=== PATIENT | female | born 1935 | race Caucasian/White ===

== ENCOUNTER 2016-09-26 12:15 | Emergency (ER) | payer MEDICARE, BC ==
[2016-09-26 12:45] VITALS: BP 150/87
--- NOTE | 2016-09-26 13:10 | UC ---
Rectal Pain HPI - HPI Summary HPI Summary: Bright red blood per rectum x 2 today, second time noticed the water in the toilet turned red. Had hemorrhoids decades ago, not recently. Has been taking abx for sinusitis which has led to frequent loose stool. Denies pain or abdominal cramping. - History Of Current Complaint Chief Complaint: UCGI Stated Complaint: PERSONAL Time Seen by Provider: 09/26/16 12:47 Hx Obtained From: Patient Hx Last Menstrual Period: Years ago. ?: No Onset/Duration: Sudden Onset Severity Initially: Mild Severity Currently: None Aggravating Factor(s): Bowel Movement Alleviating Factor(s): Nothing Associated Signs And Symptoms: Positive: Rectal Bleeding, Bright Red Blood w/ Stool Related History: Hemorrhoids - distant - Allergies/Home Medications Allergies/Adverse Reactions: Allergies Allergy/AdvReac Type Severity Reaction Status Date / Time No Known Allergies Allergy Verified 09/26/16 12:45 PMH/Surg Hx/FS Hx/Imm Hx Endocrine History Of: Reports: Thyroid Disease - hypo Denies: Diabetes, Hyperthyroidism, Hypothyroidism, Dyslipidemia Cardiovascular History Of: Reports: Cardiac Disorders - arrhythmias Denies: Hypertension, Pacemaker/ICD, Myocardial Infarction, Congestive Heart Failure, Atrial Fibrillation, Deep Vein Thrombosis, Bleeding Disorders Respiratory History Of: Denies: COPD, Asthma, Bronchitis, Pneumonia, Pulmonary Embolism GI/ History Of: Denies: Gastroesophageal Reflux, Ulcer, Gastrointestinal Bleed, Gall Bladder Disease, Kidney Stones, Diverticulitis, Renal Disease, Urosepsis Neurological History Of: Denies: TIA, CVA, Dementia, Seizures, Migraine Psychological History Of: Denies: Anxiety, Depression, Bipolar Disorder, Schizophrenia, Post Traumatic Stress Disorder Cancer History Of: Denies: Lung Cancer, Colorectal Cancer, Breast Cancer, Prostate Cancer, Cervical Cancer Other History Of: Negative For: HIV, Hepatitis B, Hepatitis C - Surgical History Surgical History: Yes Surgery Procedure, Year, and Place: hysterectomy. appendix - Family History Known Family History: Positive: None, Cardiac Disease, Hypertension - Social History Alcohol Use: Daily Alcohol Amount: wine Substance Use Type: None Smoking Status (MU): Never Smoked Tobacco - Immunization History Most Recent Tetanus Shot: 2014 Review of Systems Constitutional: Negative Skin: Negative Eyes: Negative ENT: Negative Respiratory: Negative Cardiovascular: Negative Gastrointestinal: Other - blood Genitourinary: Negative Motor: Negative Neurovascular: Negative Musculoskeletal: Negative Neurological: Negative Psychological: Negative All Other Systems Reviewed And Are Negative: Yes Physical Exam Triage Information Reviewed: Yes Appearance: Well-Appearing, No Pain Distress, Well-Nourished Vital Signs: Initial Vital Signs Temp 97.5 F 09/26/16 12:35 Pulse 120 09/26/16 12:35 Resp 16 09/26/16 12:35 BP 150/87 09/26/16 12:35 Pulse Ox 100 09/26/16 12:35 Vital Signs Reviewed: Yes Eye Exam: Other - PERRL, age-related pupillary constriction Eyes: Positive: Conjunctiva Clear ENT Exam: Normal ENT: Positive: Normal ENT inspection, Hearing grossly normal, Pharynx normal, TMs normal Neck exam: Normal Neck: Positive: Supple, Nontender, No Lymphadenopathy Respiratory Exam: Normal Respiratory: Positive: Chest non-tender, Lungs clear, Normal breath sounds, No respiratory distress, No accessory muscle use Cardiovascular: Positive: No Murmur, Tachycardia Abdominal Exam: Normal Abdomen Description: Positive: Soft Musculoskeletal Exam: Normal Neurological Exam: Normal Neurological: Positive: Alert Psychological Exam: Normal Skin Exam: Normal - Additional Comments Manuelito dried blood noted externally on rectal exam. Dark red blood with ZORA, no masses or hemorrhoids noted. Approx nickel-sized bloodstain on underpants. Rectal Pain Course/Dx - Differential Dx/Diagnosis Provider Diagnoses: lower GI bleeding. elevated blood pressure due to discomfort and anxiety Discharge - Discharge Plan Condition: Stable Disposition: HOME Patient Education Materials: Rectal Bleeding (ED) Referrals: Eliza Feliciano MD [Primary Care Provider] - 2 Days Arash Reynoso MD [Medical Doctor] - Additional Instructions: As we discussed, I recommend you get seen in the Emergency Department to make sure you are not becoming anemic. Infection related to your antibiotic use is also a concern. If you do not go to the hospital, please return the stool sample and call your primary care office on wednesday to discuss follow-up testing.
== END 2016-09-26 13:54 | disposition home or self-care (01) ==
LOC: UCCORT 12:15
DX: K92.2 Gastrointestinal hemorrhage, unspecified (principal); R03.0 Elevated blood-pressure reading, without diagnosis of hypertension; E03.9 Hypothyroidism, unspecified; I49.9 Cardiac arrhythmia, unspecified
CPT/HCPCS: 99211; G0463

== ENCOUNTER 2017-07-12 08:31 | Day surgery (SDC) | payer MEDICARE, BC ==
[~2017-07-12 08:31] MED LIST: Acetaminophen TAB* 325 MG PO PRN; Buffered Lidocaine 0.9% SYRIN* 5 ML/SYR SYRINGE INTRADERM ONE
[2017-07-12] MEDS ORDERED: fentaNYL* 50 MCG/ML 2 ML VIAL (100 MCG VIAL) ONE (09:58)
[2017-07-12] MEDS ORDERED: Midazolam* 1 MG/ML 2 ML VIAL (2 MG) ONE (09:59)
[2017-07-12 11:16] VITALS: BP 132/70
[2017-07-12] MEDS ORDERED: Ketorolac 0.5% OPHTH (NF) 0.5 % 5 ML BTL ONE (11:50)
[2017-07-12] MEDS ORDERED: Neomycin/Polymy/Dex OPHTH.OIN* 3.5 GM ONE (11:50)
[2017-07-12] MEDS ORDERED: Cyclopentolate 1% OPTH.SOL* 2 ML BTL ONE (11:50)
[2017-07-12] MEDS ORDERED: acetaZOLAMIDE TAB* 250 MG ONE (11:50)
[2017-07-12] MEDS ORDERED: Tetracaine 0.5% OPTH.SOL 4 ML* 1 DROP BTL ONE (11:50)
[2017-07-12] MEDS ORDERED: Lidocaine 1% MPF* 2 ML VIAL ONE (11:50)
[2017-07-12] MEDS ORDERED: Tropicamide 1% OPTH.SOL* BTL ONE (11:50)
[2017-07-12] MEDS ORDERED: Povidone Iodine 5% OPTH* 30 ML BTL ONE (11:50)
[2017-07-12] MEDS ORDERED: Phenylephrine 2.5% OPTH.SOL* 2 ML BTL ONE (11:50)
--- NOTE | 2017-07-13 05:47 | OP ---
DATE OF OPERATION: 07/12/17 - [facility] DATE OF : 39 SURGEON: Olivier Bryson MD ANESTHESIA: Monitored anesthesia care. PRE-OP DIAGNOSIS: Cataract, right eye. POST-OP DIAGNOSIS: Cataract, right eye. OPERATIVE PROCEDURE: Extracapsular cataract extraction of the right eye with intraocular lens implant. IMPLANTS: SN60WF 22.5 diopter lens to the right eye. COMPLICATIONS: None. DESCRIPTION OF PROCEDURE: The patient was given phenylephrine 2.5% and cyclopentolate 1% eyedrops to the operative eye in the preoperative area. The patient was brought to the operating room where a time-out was taken to identify the correct patient, site and side of surgery. The patient's right eye was prepped and draped in the usual sterile fashion with 5% Betadine. A second time-out was taken to verify the correct patient, site and side of surgery, and correct lens selection. A lid speculum was placed to the right eye. A 1-mm paracentesis blade was used to make a clear corneal incision in the superotemporal position. Preservative-free 1% lidocaine was injected into the anterior chamber. DisCoVisc was then injected into the anterior chamber. A 2.75-mm keratome blade was used to make a triplanar incision at the inferotemporal position. A cystotome initiated a capsulorrhexis, which was completed with Utrata forceps in a continuous and curvilinear manner. Hydrodissection of the lens was performed with BSS on a cannula. The lens could be spun in the capsular bag. The phacoemulsification handpiece was used with a rzoxvy-cqo-ycvgdoo technique to remove the nucleus in its entirety with 7.24 CDE. The I/A handpiece then removed the residual cortical lens material. DisCoVisc was injected to inflate the capsular bag. The planned SN60WF 22.5 diopter lens was injected into the capsular bag. The residual DisCoVisc was removed from the eye with the I/A handpiece. The corneal incisions were hydrated and no leaks occurred at physiologic pressure around 20 mmHg per palpation. The lid speculum was removed and drapes removed. Maxitrol ointment was placed to the surface of the operative eye. An adhesive patch and shield was then placed on the operative eye. The patient was taken to the postoperative area in stable condition. [id number]/[facility] #: [id number] MTDD
== END 2017-07-12 11:26 | disposition home or self-care (01) ==
LOC: OREAST 08:31
PROVIDERS: ATTEND Student in an Organized Health Care Education/Training Program
DX: H25.811 Combined forms of age-related cataract, right eye (principal); H43.813 Vitreous degeneration, bilateral; I34.0 Nonrheumatic mitral (valve) insufficiency; E03.9 Hypothyroidism, unspecified; M19.90 Unspecified osteoarthritis, unspecified site; I11.9 Hypertensive heart disease without heart failure; I20.9 Angina pectoris, unspecified; R05 Cough
CPT/HCPCS: A9270-GY; J2250; J3010; V2632

== ENCOUNTER 2017-07-19 09:06 | Day surgery (SDC) | payer MEDICARE, BC ==
[~2017-07-19 09:06] MED LIST changes: +Cyclopentolate 1% OPTH.SOL* 2 ML BTL ONE; +Ketorolac 0.5% OPHTH (NF) 0.5 % 5 ML BTL ONE; +Lidocaine 1% MPF* 2 ML VIAL ONE; +Neomycin/Polymy/Dex OPHTH.OIN* 3.5 GM ONE; +Phenylephrine 2.5% OPTH.SOL* 2 ML BTL ONE; +Povidone Iodine 5% OPTH* 30 ML BTL ONE; +Tetracaine 0.5% OPTH.SOL 4 ML* 1 DROP BTL ONE; +Tropicamide 1% OPTH.SOL* BTL ONE; +acetaZOLAMIDE TAB* 250 MG ONE
[2017-07-19] MEDS ORDERED: Propofol* 10 MG/ML 20 ML BTL IV PUSH ONE (11:17)
[2017-07-19 12:05] VITALS: BP 153/66
[2017-07-19] MEDS ORDERED: BSS OPTH.SOL* BTL ONE (12:09)
--- NOTE | 2017-07-20 02:03 | OP ---
DATE OF OPERATION: 07/19/17 - [facility] DATE OF : 39 SURGEON: Olivier Bryson MD ANESTHESIOLOGIST: Abdiaziz Yost DO ANESTHESIA: Monitored anesthesia care. PRE-OP DIAGNOSIS: Cataract left eye. POST-OP DIAGNOSIS: Cataract left eye. OPERATIVE PROCEDURE: Extracapsular cataract extraction of the left eye with intraocular lens implant. IMPLANTS: SN60WF 22.5 diopter lens to the left eye. COMPLICATIONS: None. DESCRIPTION OF PROCEDURE: The patient was given phenylephrine 2.5% and cyclopentolate 1% eye drops to the operative eye in the preoperative area. The patient was brought to the operating room where a time-out was taken to identify the correct patient, site, and side of the surgery. The patient's left eye was prepped and draped in the usual sterile fashion with 5% Betadine. A second time- out was taken to verify the correct patient site, and side of surgery and correct lens selection. A lid speculum was placed to the right eye. A 1-mm paracentesis blade was used to make a clear corneal incision in the inferotemporal position. Preservative-free 1% lidocaine was injected into the anterior chamber. DisCoVisc was then injected into the anterior chamber. A 2.75-mm keratome blade was used to make a triplanar incision at the superotemporal position. A cystotome initiated a capsulorrhexis which was completed with Utrata forceps in a continuous and curvilinear manner. Hydrodissection of the lens was performed with BSS on a cannula. The lens could be spun in the capsular bag. The phacoemulsification handpiece was used with a onwoys-yle-yxhgaui technique to remove the nucleus in its entirety with 15.44 CDE. The I/A handpiece then removed the residual cortical lens material. DisCoVisc was injected to inflate the capsular bag. The planned SN60WF 22.5 diopter lens was injected into the capsular bag. The residual DisCoVisc was removed from the eye with the I/A handpiece. The corneal incisions were hydrated and no leaks occurred at physiologic pressure around 20 mmHg per palpation. The lid speculum was removed and drapes removed. Maxitrol ointment was placed to the surface of the operative eye. An adhesive patch and shield was then placed on the operative eye. The patient was taken to the postoperative area in stable condition. [id number]/[facility] #: [id number] MTDBetty
== END 2017-07-19 12:15 | disposition home or self-care (01) ==
LOC: OREAST 09:06
PROVIDERS: ATTEND Student in an Organized Health Care Education/Training Program
DX: H25.812 Combined forms of age-related cataract, left eye (principal); H43.813 Vitreous degeneration, bilateral; E03.9 Hypothyroidism, unspecified; I34.0 Nonrheumatic mitral (valve) insufficiency; I11.9 Hypertensive heart disease without heart failure
CPT/HCPCS: A9270-GY; J2704; V2632

== ENCOUNTER 2019-03-13 08:07 | Emergency (ER) | payer MEDICARE, BC ==
--- OUTSIDE RECORDS SUMMARY | 2019-03-13 08:17 | XMS REPORT | Continuity of Care Document ---
:1935 External Reference #:[id number] Author Name Nany Georges O.D. Address [address] [place] [address] Care Team Providers Name Role Phone Margarita Watkins M.D. - Internal Medicine Care Team Information Director Medical Economics [phone] Problems Active Problems Provider Date Acid reflux Onset: Essential hypertension Onset: Bone density low Onset: Combined form of senile cataract Nany Georges O.D. Onset: 06/26/2015 Corneal pannus Nany Georges O.D. Onset: 06/26/2015 Viral conjunctivitis Nany Georges O.D. Onset: 12/05/2015 Angular blepharoconjunctivitis Nany Georges O.D. Onset: 12/30/2015 Vitreous degeneration Nany Georges O.D. Onset: 06/26/2016 Cough Onset: Other secondary cataract, right eye Nany Georges O.D. Onset: 2018 Presence of intraocular lens Olivier Bryson M.D. Onset: 07/20/2017 Social History Type Date Description Comments Sex Unknown ETOH Use Occasionally consumes alcohol Tobacco Use Start: Unknown Patient has never smoked Recreational Drug Use Denies Drug Use Smoking Status Reviewed: 03/10/19 Patient has never smoked Allergies, Adverse Reactions, Alerts Description No Known Drug Allergies Medications Active Medications SIG Qnty Indications Ordering Provider Date Erythromycin apply thin strip 1Tube H10.523 Nany Esteves 03/10/2019 5mg/GM to all four Chandler Georges Ointment eyelid margins x every night for 2 weeks Refresh Optive 1 drop every 30ml Nany Esteves 12/29/2015 0.5-0.9% morning as Chandler Georges Solution needed Levothyroxine Sodium Unknown 50mcg Tablets Cartia XT Unknown 180mg Caps ER 24HR Aspir-[address] Calcium Unknown 250mg Capsules Multi Vitamin Daily Unknown Tablets Breo Ellipta Ring, Margarita Clayton.Maria C 100-25mcg/Inh Aerosol Immunizations Description No Information Available Vital Signs Description No Information Available Results Description No Information Available Procedures Description No Information Available Medical Devices Description No Information Available Encounters Description No Information Available Assessments Date Code Description Provider 03/10/2019 H10.523 Angular blepharoconjunctivitis, bilateral Nany Georges O.D. 03/10/2019 H26.491 Other secondary cataract, right eye Nany Georges O.D. 03/10/2019 Z96.1 Presence of intraocular lens Nany Georges O.D. Plan of Treatment 03/10/2019 - Nany Georges O.D.H10.523 Angular blepharoconjunctivitis, bilateralNew Medication:Erythromycin 5 mg/GM - apply thin strip to all four eyelid margins x every night for 2 weeksComments:USE OINTMENT AT BEDTIME ON ALL LID MARGINS FOR 2 WEEKS AT BEDTIME.USE LID SCRUBSUSE HOT COMPRESS FOR5-10 YGDEBDTA07.491 Other secondary cataract, right eyeFollow up:2-3 MONTHS PCO CHECK WITH GZZ96.1 Presence of intraocular lens Functional Status Description No Information Available Mental Status Description No Information Available Referrals Description No Information Available
[2019-03-13 08:22] VITALS: BP 144/69
--- NOTE | 2019-03-13 08:45 | UC ---
HPI Wound/Suture Re-check - HPI Summary HPI Summary: 83-year-old female who fell down 3 or 4 steps at her son's wedding and should consult on Wednesday the sustaining a laceration to the back of her head and a bruise to her left hip. She was seen in the emergency room and states she first had 4 sutures placed and then beto placed in the laceration. She says that she also received a CAT scan of her head and neck which were negative. She 's had no residual problems since then. She had no loss of consciousness or neck pain at the time. She states to me the 4 sutures were placed to stop the bleeding, she thinks they were removed and then beto were placed but she's not 100% sure the sutures were removed. - History Of Current Complaint Chief Complaint: UCWounds Stated Complaint: BETO TO BE REMOVED Time Seen by Provider: 03/13/19 08:20 Hx Obtained From: Patient Hx Last Menstrual Period: Years ago. Onset/Duration: Sudden Onset Severity: Moderate Pain Intensity: 0 - Allergies/Home Medications Allergies/Adverse Reactions: Allergies Allergy/AdvReac Type Severity Reaction Status Date / Time No Known Allergies Allergy Verified 03/13/19 08:21 PMH/Surg Hx/FS Hx/Imm Hx Previously Healthy: Yes Endocrine History: Thyroid Disease Cardiovascular History: Other - Dysrhythmia Other History Of: Negative For: HIV, Hepatitis B, Hepatitis C - Surgical History Surgical History: Yes Surgery Procedure, Year, and Place: hysterectomy. appendix - Family History Known Family History: Positive: None, Cardiac Disease, Hypertension - Social History Occupation: Retired Alcohol Use: Daily Alcohol Amount: wine Substance Use Type: None Smoking Status (MU): Never Smoked Tobacco - Immunization History Most Recent Tetanus Shot: 2014 Review of Systems All Other Systems Reviewed And Are Negative: Yes Skin: Positive: Other - Patient's laceration was to the back of the head and sutures were placed the day of the injury as well as beto. The patient states she thinks the doctor told her he had removed the sutures prior to placing the beto. Neurovascular: Positive: Other - Patient denies any complications since the injury and no numbness or tingling in her extremities. Musculoskeletal: Positive: Other: - Patient denies any neck pain and states she thinks she received a CT of the head and neck which were normal. Is Patient Immunocompromised?: No Physical Exam Triage Information Reviewed: Yes Appearance: Well-Appearing, No Pain Distress, Well-Nourished Vital Signs: Initial Vital Signs Temp 98.3 F 03/13/19 08:16 Pulse 84 03/13/19 08:16 Resp 18 03/13/19 08:16 BP 144/69 03/13/19 08:16 Pulse Ox 100 03/13/19 08:16 Vital Signs Reviewed: Yes Eyes: Positive: Conjunctiva Clear - PERRLA, EOMI ENT: Positive: Hearing grossly normal, Pharynx normal, TMs normal, Uvula midline Neck: Positive: Supple, Nontender - No C-spine tenderness, No Lymphadenopathy Respiratory: Positive: Chest non-tender, Lungs clear, Normal breath sounds, No respiratory distress, No accessory muscle use Cardiovascular: Positive: RRR, No Murmur, Pulses Normal, Brisk Capillary Refill Abdomen Description: Positive: Nontender, No Organomegaly, Soft. Negative: CVA Tenderness (R), CVA Tenderness (L) Bowel Sounds: Positive: Present Musculoskeletal: Positive: Strength Intact - Good arm and leg strength against resistance., ROM Intact, No Edema, Other: - Skull is intact and nontender. C- spine nontender. Neurological: Positive: Alert - Cranial nerves II through XII are intact, normal dystidiokinesia, alert and oriented. Patient has full recall of events. She ambulates without difficulty., Muscle Tone Normal Psychological Exam: Normal Skin: Positive: Other - Laceration back of head which has beto present. Course/Dx - Course Course Of Treatment: The patient is awake and alert and answers questions appropriately. I removed 10 beto from the small wound on the back of her head. The patient tolerated the procedure well. Because she is unsure about the sutures being removed prior to the beto being placed the area was cleansed thoroughly, and no sutures were visualized. The wound itself is healing however the edges not completely approximated. There is no bleeding and no signs of infection. Area is nontender on palpation. - Diagnosis Provider Diagnosis: Encounter for staple removal Discharge ED - Sign-Out/Discharge Documenting (check all that apply): Patient Departure All imaging exams completed and their final reports reviewed: No Studies - Discharge Plan Condition: Good Disposition: HOME Referrals: Margarita Watkins MD [Primary Care Provider] - Additional Instructions: You can wash her hair just don't scrub the wound. Follow-up with Dr. Watkins if you have any further concerns. - Billing Disposition and Condition Condition: GOOD Disposition: Home - Attestation Statements Provider Attestation: Per institutional requirements, I have reviewed the chart, however, I was not consulted specifically or made aware of this patient by the midlevel provider. I did not personally evaluate, interact with , or disposition this patient.
== END 2019-03-13 08:56 | disposition home or self-care (01) ==
LOC: UCCORT 08:07
DX: Z48.02 Encounter for removal of sutures (principal)
CPT/HCPCS: 99211; G0463